=== PATIENT | male | born 1955 | race Caucasian/White ===

== ENCOUNTER 2022-07-27 10:33 | Inpatient (IN) | payer OTHER, MEDICARE ==
[~2022-07-27] VITALS: Ht 172.7 cm; Wt 109.9 kg
[2022-07-27] MEDS ORDERED: WARF5 (11:03)
[2022-07-27] MEDS ORDERED: Amlodipine Bes2.5 MG PO (11:03)
[2022-07-27] MEDS ORDERED: ATOR20 PO (11:03)
[2022-07-27 11:10] LABS: BASOPHILS ABSOLUTE AUTO 0.03 K/mm3 (0.00-0.23); BASOPHILS PERCENT AUTO 0 % (0-2); EOSINOPHILS ABSOLUTE AUTO 0.01 K/mm3 (0.00-0.68); EOSINOPHILS PERCENT AUTO 0 % (0-6); Hematocrit 42.6 % (37.0-53.0); Hemoglobin 13.4 g/dL (13.5-17.5); IMMATURE GRAN ABSOLUTE AUTO 0.03 K/mm3 (0.00-0.10); IMMATURE GRAN PERCENT AUTO 0 % (0-1); LYMPHOCYTES ABSOLUTE AUTO 0.39 K/mm3 (0.84-5.20); LYMPHOCYTES PERCENT AUTO 5 % (21-46); MONOCYTES ABSOLUTE AUTO 0.58 K/mm3 (0.16-1.47); MONOCYTES PERCENT AUTO 7 % (4-13); Mean Corpuscular HGB 27.7 pg (26.0-34.0); Mean Corpuscular HGB Conc 31.5 g/dL (31.5-36.5); Mean Corpuscular Volume 88 fL (80-100); Mean Platelet Volume 9.5 fL (9.1-12.4); NEUTROPHILS PERCENT AUTO 88 % (41-73); Platelet Count 230 K/mm3 (150-400); RDW Coefficient Variation 15.1 % (11.7-14.2); RDW Standard Deviation 49.4 fL (35.1-46.3); Red Blood Cell Count 4.84 M/mm3 (4.30-5.90); White Blood Cell Count 8.44 K/mm3 (4.00-11.30)
[2022-07-27 11:14] LABS: Bicarbonate Venous 24.5 mmol/L (24.0-30.0); pH Blood Venous 7.28 (7.34-7.37)
[2022-07-27 11:39] LABS: Influenza A, PCR NEGATIVE (NEGATIVE); Influenza B, PCR NEGATIVE (NEGATIVE); SARS-Cov-2 (COVID-19) PCR, MMC NEGATIVE (NEGATIVE)
[2022-07-27 11:40] LABS: Resp Syncytial Virus, PCR POSITIVE (NEGATIVE)
[2022-07-27 13:01] LABS: Albumin, Blood 3.5 g/dL (3.4-5.0); Albumin/Globulin Ratio 0.9 (0.8-1.8); Bilirubin, Total 0.5 mg/dL (0.1-1.0); Bun/Creatinine Ratio 25.1 (12.0-20.0); Calcium, Blood 8.7 mg/dL (8.5-10.1); Creatinine, Blood 0.64 mg/dL (0.60-1.20); Globulin, Blood 4.1 g/dL (2.2-4.0); Potassium, Blood 4.6 mmol/L (3.5-5.5); Total Protein, Blood 7.6 g/dL (6.4-8.2)
[2022-07-27 14:02] LABS: Prothrombin Time Results 59.7 Sec (9.7-11.5)
[2022-07-27 14:11] LABS: International Normalized Ratio 6.42
[2022-07-27 15:52] LABS: PCO2 Venous 65.3 mmHg (38-42); pH Blood Venous 7.26 (7.34-7.37)
[2022-07-27 15:53] LABS: Base Excess Venous 2.1 mmol/L; Bicarbonate Venous 24.5 mmol/L (24.0-30.0)
--- NOTE | 2022-07-27 18:06 | NUR ---
SHIFT SUMMARY PT HAS BEEN RESTING QUIETLY IN ROOM SINCE ADMISSION. PT HAS TOLERATED BIPAP WELL. PT WAS TRANSITIONED TO HIGH FLOW NASAL CANNULA AT 8L AND SAT UP AT THE EDGE OF BED FOR DINNER, THEY MAINTAINED SPO2 >90%. THEY HAVE BEEN ALERT AND ORIENTED X4, PLEASANT AND COOPERATIVE WITH CARE.
[2022-07-27 19:11] LABS: Base Excess Venous 4.4 mmol/L; Bicarbonate Venous 27.1 mmol/L (24.0-30.0); PCO2 Venous 51.4 mmHg (38-42); pH Blood Venous 7.37 (7.34-7.37)
[2022-07-28 04:28] LABS: Hematocrit 38.9 % (37.0-53.0); Hemoglobin 12.1 g/dL (13.5-17.5); Mean Corpuscular HGB 27.4 pg (26.0-34.0); Mean Corpuscular HGB Conc 31.1 g/dL (31.5-36.5); Mean Corpuscular Volume 88 fL (80-100); Mean Platelet Volume 8.9 fL (9.1-12.4); Platelet Count 181 K/mm3 (150-400); RDW Coefficient Variation 15.3 % (11.7-14.2); RDW Standard Deviation 49.1 fL (35.1-46.3); Red Blood Cell Count 4.42 M/mm3 (4.30-5.90); White Blood Cell Count 5.46 K/mm3 (4.00-11.30)
[2022-07-28 04:59] LABS: Prothrombin Time Results 52.7 Sec (9.7-11.5)
[2022-07-28 05:07] LABS: Albumin/Globulin Ratio 0.8 (0.8-1.8); Bilirubin, Total 0.3 mg/dL (0.1-1.0); Bun/Creatinine Ratio 28.3 (12.0-20.0); Calcium, Blood 8.3 mg/dL (8.5-10.1); Creatinine, Blood 0.74 mg/dL (0.60-1.20); Globulin, Blood 3.7 g/dL (2.2-4.0); Potassium, Blood 4.8 mmol/L (3.5-5.5); Total Protein, Blood 6.7 g/dL (6.4-8.2)
--- NOTE | 2022-07-28 05:38 | NUR ---
END OF SHIFT REPORT LINES: [facility] NEURO: ALERT AND ORIENTED X4. PT DENIES NUMBNESS/TINGLING, HEADACHE OR VISION CHANGES. FOLLOWS COMMANDS AND MAKES NEEDS KNOWN. GROSS AND FINE SENSATION INTACT. CHRONIC LEFT SHOULDER INJURY LIMITS MOVEMENT WITH THAT ARM. GENERALIZED WEAKNESS BUT ALL FOUR EXTREMITIES CAN OVERCOME RESISTANCE. CARDIAC: BIGEMINY. HR 90s. BP AVERAGING 120s/90s. PT DENIES CHEST PAIN. +2 GENERALIZED EDEMA RESPIRATORY: BIPAP 16/10 35% OR HFNC 8L WHEN EATING. SOB/DYSPNEA WITH EXERTION. APPRECIATED COARSE AND WHEEZEY BREATH SOUNDS. GI/: REGULAR DIET. CONTINENT OF BOWEL AND BLADDER. NO BOWEL MOVEMENT OVERNIGHT. PUTTING OUT ADEQUATE AMOUNTS OF NATE URINE. INTEGUMENTARY: INTACT. FRANCIS AND RED.
[2022-07-28 05:51] LABS: International Normalized Ratio 5.62
--- NOTE | 2022-07-28 17:21 | NUR ---
SHIFT SUMMARY PATIENT ALERT AND ORIENTED X4. HAD NO COMPLAINTS OF PAIN OR SHORTNESS OF BREATH. HAD NO ACUTE ISSUES NOTED TODAY. PATIENT CONTINUES TO BE ON BIPAP 16/10 WITH 35% FIO2. TOLERATES BAING ON 8 LITERS VIA HIGH FLOW NC FOR EATING. CALL LIGHT WITHIN REACH. WILL CONTINUE TO MONITOR.
[2022-07-29 03:51] LABS: International Normalized Ratio 3.63
--- NOTE | 2022-07-29 05:47 | NUR ---
EXTRUSION ENGINEER SUMMARY ASSUMED CARE OF THE PT AT 1900. HE IS ALERT AND ORIENTED X4, GROSSLY INDEPENDENT IN THE ROOM. PT ALTERNATING BETWEEN 8L BY HIGH FLOW NC AND BIPAP AT 16/10 AND 35%. HE HAS BEEN ON BIPAP THROUGHOUT THE NIGHT AND HAS BEEN SATTING >93%. THE PT HAS DENIED ANY CHEST PAIN/PRESSURE AND HAS BEEN IN BIGEMINY SINCE ADMIT BUT DID HAVE A 5 BEAT RUN OF V TACH AT 2336 - PT WAS ASYMPTOMATIC AND ASLEEP AT THIS TIME. HE HAS BEEN USING THE URINAL INDEPENDENTLY AND IS ABLE TO REPOSITION HIMSELF NEEDED. BP STABLE. HR REMAINS AROUND THE 80S.
--- NOTE | 2022-07-29 18:23 | NUR ---
SHIFT SUMMARY PATIENT ALERT AND ORIENTED. HAD NO COMPLAINTS OF PAIN OR SHORTNESS OF BREATH. HAD TWO FIVE BEAT RUNS OF V TACH. WAS UP IN HIS CHAIR ALL DAY ON O2 VIA THE HIGH FLOW NASAL CANULA, WAS ABLE TO TITRATE O2 DOWN TO 6 LPM. PATIENT TOLERATING IT WELL, EVEN WHEN WALKING TO THE BATHROOM AND BACK. WILL CONTINUE TO MONITOR. CALL LIGHT WITHIN REACH.
[2022-07-30 04:23] LABS: International Normalized Ratio 2.44; Prothrombin Time Results 24.2 Sec (9.7-11.5)
--- NOTE | 2022-07-30 06:41 | NUR ---
STEEL ERECTOR APPRENTICE SUMMARY PT ALERT AND ORIENTED X4, COOPERATIVE AND FOLLOWING COMMANDS. HE HAS BEEN RESTING ON 6L BY [facility] THROUGHOUT THE NIGHT AND DID NOT REQUIRE USE OF HIS BIPAP. PT REPORTS THAT HIS SHORTNESS OF BREATH IS IMPROVING. HE DENIES ANY CHEST PAIN/PRESSURE. PT WAS UP IN THE CHAIR UNTIL TIME OF NIGHT MEDS AND WAS TRIALED WITH SLEEPING ON NC. SATURATIONS REMAINED >92% WHILE SLEEPING AND PT DENIES INCREASED WOB. PT IS GROSSLY INDEPENDENT IN THE ROOM. HE HAS BEEN IN BIGEMINY ON [facility] SINCE ADMISSION. NO ACUTE EVENTS.
--- NOTE | 2022-07-30 13:39 | NUR ---
PT INDEPENDENT IN ROOM. A/OX4. NO REPORTS OF SOB. NO REPORT OF CHEST PIAN. PT ON 4L NC WITH SATS IN THE 90'S. OTHER VSS. REPORT GIVEN TO GABRIELA PERRY.
--- NOTE | 2022-07-30 17:42 | NUR ---
PCU Transfer Patient moved from PCU today. AOx4, independent in the room. No coughing, SOB observed. Patient continues to require 4L oxygen to maintain sats. No other changes to patient status. Patient denies pain/discomfort. Will continue plan of care, possible discharge tomorrow.
--- NOTE | 2022-07-30 20:00 | NUR ---
NOTIFIED BY U CARBONATION EQUIPMENT OPERATOR PT HAD MULTIPLE RUNS OF TRIGEMINY SINCE 1637 WITH MULTIPLE RUNS OF 6/7 PVC'S EVERY 3 BEATS. DAR.
--- NOTE | 2022-07-31 00:28 | NUR ---
NOTIFIED BY [employer] THAT PT HAD RUN OF V-TACH FOR 15 BEATS AT 0020. PT IS ASYPMTOMATIC. THIS IS FIRST NOTED V-TACH RUN. CHARGE NURSE NOTIFIED. WCTM.
--- NOTE | 2022-07-31 03:31 | NUR ---
SHIFT SUMMARY NOC PT A/O X 4. ISO DROPLET/CONTACT FOR RSV. INDEPENDENT IN ROOM. PT HAS HAD NO C/O SOB. PT HAS HAD DRY COUGH INTERMITTENTLY NON PRODUCTIVE. PT ON TELE AT WITH BIGEMINY/TRIGEMINY HR 106 BPM. NOTIFIED BY REGISTERED NURSE OBSTETRICS @ 0020 THAT PT HAD RUN OF V-TACH FOR 15 BEATS PT WAS ASYMPTOMATIC. CHARGE NURSE NOTIFIED. WCTM. PT ON 4L/NC SPO2 > 94%. PT REPORTS BREATHING EASIER NOW. PT PLEASANT AND COOPERATIVE WITH CARE. PT HAS BEEN SWITCHED TO PO ABX IN ANTICIPATION OF POSSIBLE DC TODAY. PT IS CURRENTLY RESTING IN BED WITH BED IN LOWEST POSITION AND CALL LIGHT WITHIN REACH. WCTM.
[2022-07-31 05:10] LABS: International Normalized Ratio 2.56; Prothrombin Time Results 25.3 Sec (9.7-11.5)
[2022-07-31] MEDS ORDERED: BENZ100A PO (12:16)
[2022-07-31] MEDS ORDERED: METPRE4 PO (12:17)
[2022-07-31] MEDS ORDERED: GUAI600T33 PO (12:17)
[2022-07-31] MEDS ORDERED: ANORO ELLIPTA1 EACH INH (12:18)
--- NOTE | 2022-07-31 14:33 | NUR ---
DISCHARGE SUMMARY PATIENT IS ALERT AND ORIENTED. PATIENT HAS HAD NO ACUTE EVENTS THIS SHIFT. VITAL SIGNS REVIEWED. PATIENT HAD O2 EVAL DONE AND NEEDS 3L. PATIENT IS BEING DISCHARGED WITH TRANSPORTING ON 3L THAT WAS DELIVERED. PATIENT IS AWARE AND AGREES WITH DISCHARGE INSTRUCTIONS.
== END 2022-07-31 14:23 | disposition home or self-care (01) | DRG 193 ==
LOC: ER 10:33 → PCU 13:05 → MEDS 07-30 14:50 → PCU 07-30 14:52 → ENPENDDIS 07-31 11:53 → MEDS 07-31 14:23
PROVIDERS: Emergency Medicine; Nurse Practitioner Acute Care; ADMIT Hospitalist
PROC: 5A09457 Assistance with Respiratory Ventilation, 24-96 Consecutive Hours, Continuous Positive Airway Pressure (ICD-10-PCS; principal; 2022-07-27)
PROC: 5A0935A Assistance with Respiratory Ventilation, Less than 24 Consecutive Hours, High Flow/Velocity Cannula (ICD-10-PCS; 2022-07-28)
DX: J12.1 Respiratory syncytial virus pneumonia (principal); I50.33 Acute on chronic diastolic (congestive) heart failure; J96.01 Acute respiratory failure with hypoxia; J96.02 Acute respiratory failure with hypercapnia; J44.1 Chronic obstructive pulmonary disease with (acute) exacerbation; D68.9 Coagulation defect, unspecified; J44.0 Chronic obstructive pulmonary disease with (acute) lower respiratory infection; I11.0 Hypertensive heart disease with heart failure; I45.6 Pre-excitation syndrome; Z20.822 Contact with and (suspected) exposure to COVID-19; E78.5 Hyperlipidemia, unspecified; Z95.2 Presence of prosthetic heart valve; Z79.899 Other long term (current) drug therapy; Z79.01 Long term (current) use of anticoagulants; Z79.02 Long term (current) use of antithrombotics/antiplatelets; Z87.891 Personal history of nicotine dependence
CPT/HCPCS: 0241U; 36415; 71045; 80053; 82803; 83735; 83880; 84484; 85025; 85027; 85610; 93005; 93010; 93306; 94640; 94660; 94664; 94760; 94761; 94762; 96365; 97161; 99285-25; A9270; J0456; J1940; J2920; J7050

== ENCOUNTER 2023-07-19 09:05 | Day surgery (SDC) | payer OTHER ==
[~2023-07-19] VITALS: Ht 177.8 cm; Wt 107.1 kg
[~2023-07-19 09:05] MED LIST: ANORO ELLIPTA1 EACH INH; ATOR20 PO; Amlodipine Bes2.5 MG PO; BENZ100A PO; FURO40 PO; GUAI600T33 PO; METPRE4 PO; POTCHL20ER PO; WARF5
[2023-07-19] MEDS ORDERED: ALBU90OI INH (10:34)
[2023-07-19] MEDS ORDERED: FISH OIL 1,2001 EAC7 PO (10:35)
[2023-07-19] MEDS ORDERED: FEROSUL325 MG PO (10:35)
[2023-07-19 15:47] VITALS: BP 127/74
== END 2023-07-19 16:11 | disposition home or self-care (01) ==
LOC: ORSCSDS 09:05
PROVIDERS: Internal Medicine Gastroenterology
PROC: 0DBP8ZX Excision of Rectum, Via Natural or Artificial Opening Endoscopic, Diagnostic (ICD-10-PCS; principal; 2023-07-19 10:45)
PROC: 0DBM8ZX Excision of Descending Colon, Via Natural or Artificial Opening Endoscopic, Diagnostic (ICD-10-PCS; principal; 2023-07-19 10:45)
PROC: 0DBK8ZX Excision of Ascending Colon, Via Natural or Artificial Opening Endoscopic, Diagnostic (ICD-10-PCS; principal; 2023-07-19 10:45)
PROC: 0DBN8ZX Excision of Sigmoid Colon, Via Natural or Artificial Opening Endoscopic, Diagnostic (ICD-10-PCS; principal; 2023-07-19 10:45)
PROC: 0DJ08ZZ Inspection of Upper Intestinal Tract, Via Natural or Artificial Opening Endoscopic (ICD-10-PCS; principal; 2023-07-19 10:45)
PROC: 0DBL8ZX Excision of Transverse Colon, Via Natural or Artificial Opening Endoscopic, Diagnostic (ICD-10-PCS; principal; 2023-07-19 10:45)
DX: D50.9 Iron deficiency anemia, unspecified (principal); Z79.01 Long term (current) use of anticoagulants; D12.2 Benign neoplasm of ascending colon; K63.5 Polyp of colon; K62.1 Rectal polyp; I10 Essential (primary) hypertension; I50.9 Heart failure, unspecified; E78.5 Hyperlipidemia, unspecified; J44.9 Chronic obstructive pulmonary disease, unspecified; Z68.33 Body mass index [BMI] 33.0-33.9, adult; Z79.899 Other long term (current) drug therapy; F17.210 Nicotine dependence, cigarettes, uncomplicated
CPT/HCPCS: 88305; J2001; J2371; J2704; J7120